=== PATIENT | female | born 1955 | race African-American/Black ===

== ENCOUNTER 2016-08-31 14:01 | Emergency (ER) | payer OTHER ==
[~2016-08-31] VITALS: Ht 137.2 cm; Wt 67.6 kg
[~2016-08-31 14:01] MED LIST: BACTROBAN 2%20 MG/GM TP; MOTRIN; TYLENOL #3 300/1 TAB PO
--- NOTE | 2016-08-31 14:01 | NUR ---
PATIENT AMBULATED TO BED 2.
[2016-08-31 14:02] VITALS: BP 139/59
--- NOTE | 2016-08-31 14:21 | NUR ---
Patient being evaluated by physician at bedside.
--- NOTE | 2016-08-31 14:21 | NUR ---
PT BIB MOTHER FOR EVALUATION OF CHEST PAIN. MOTHER STATES THE CP STARTED 30 MINUTES AGO AND IS INTERMITTENT IN DURATION. HX DOWN SYNDROME. PT IS AAO. HOB,POSITION PT TO COMFORT. ALL MONITORS PLACED IN. WILL CONTINUE TO MONITOR PT.
--- NOTE | 2016-08-31 14:23 | NUR ---
Patient being evaluated by physician at bedside.
[2016-08-31] MEDS ORDERED: KETOROLAC 30 MG/ML VIAL IVP ONE (14:30)
--- NOTE | 2016-08-31 15:05 | NUR ---
PT AAO.WENT TO RESTROOM.
[2016-08-31] MEDS ORDERED: NACL 0.9% 1,000 ML IV ONE (15:55)
[2016-08-31] MEDS ORDERED: FAMOTIDINE 20 MG/2 ML VIAL IVP ONE (15:55)
--- NOTE | 2016-08-31 16:49 | NUR ---
PT IS AAO. NO ACUTE DISTRESS NOTED AT THIS TIME. DENIES PAIN AT THE MOMENT. ALL MONITORS PLACED IN. WILL CONTINUE TO MONITOR PT.
--- NOTE | 2016-08-31 17:14 | NUR ---
PT C/O CHEST PAIN.VSS. MADE AWARE.
--- NOTE | 2016-08-31 17:17 | NUR ---
Patient being evaluated by physician at bedside.
[2016-08-31 17:36] VITALS: BP 116/71
== END 2016-08-31 17:37 | disposition home or self-care (01) ==
LOC: MED 14:01
DX: R07.89 Other chest pain (principal); D64.9 Anemia, unspecified; N28.9 Disorder of kidney and ureter, unspecified; R03.0 Elevated blood-pressure reading, without diagnosis of hypertension
CPT/HCPCS: 36415; 71010; 76705; 80053; 81001; 81025; 83690; 83735; 83880; 84484; 85025; 85610; 85730; 93005; 96361; 96374; 99285; J1885; J3490; J7030; Q0092